=== PATIENT | female | born 1950 | race Caucasian/White ===

== ENCOUNTER 2018-03-12 10:25 | Observation (INO) ==
[2018-03-12] MEDS ORDERED: Aspirin 81 MG TAB.CHEW PO ONE (10:29)
--- NOTE | 2018-03-12 10:33 | Emergency Department Note ---
Disposition Clinical Impression: Chest pain Qualifiers: Chest pain type: unspecified Qualified Code(s): R07.9 - Chest pain, unspecified Disposition: Admitted As Inpatient Condition: Fair Referrals: Susu Calderón MD [Primary Care Provider] - Forms: ED Satisfaction Letter Time of Disposition: 12:19 Chest Pain HPI - General Chief Complaint: ED Chest Pain Stated Complaint: Chest Pain Time Seen by Provider: 03/12/18 10:29 Source: patient Mode of arrival: ambulatory Limitations: no limitations Vital Signs Reviewed: Yes Nursing Notes Reviewed: Yes - History of Present Illness HPI Narrative: 67-year-old female who has no cardiac history comes in complaining of intermittent chest pain since yesterday. Patient had a cardiac ablation 9 years ago and said no other issues since. She has had no recent cardiac workup. Cardiac risk factors include high cholesterol and family history. 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 Onset: during rest Pain Location: substernal, left chest Quality: tightness, sharp Pain Radiation: none Improves with: nothing Associated symptoms: Denies: cough Treatments prior to arrival chest pain: none - Related Data Home Medications Medication Instructions Recorded Confirmed Aspirin 81 mg PO DAILY 03/12/18 03/12/18 Calcium Carbonate [Calcium] 500 mg PO DAILY 03/12/18 03/12/18 Glucosamn/Condroitn/C/Mn/[place] 1 tab PO DAILY 03/12/18 03/12/18 [[facility]vs Glucosamine Chondroitin Tb] Lactobacillus Acidophilus 1 mg PO DAILY 03/12/18 03/12/18 [Acidophilus Probiotic] Mv-Mn/FA/Vit K/Lycop/Lut/Coq10 1 tab PO DAILY 03/12/18 03/12/18 [Daily Multivitamin Capsule] [place]-3/Dha/Epa/Fish Oil [Fish Oil 1 tab PO DAILY 03/12/18 03/12/18 1,000 mg Softgel] Simvastatin [Zocor] 20 mg PO DAILY 03/12/18 03/12/18 Ubiquinol [Active-Q] 200 mg PO DAILY 03/12/18 03/12/18 Allergies Allergy/AdvReac Type Severity Reaction Status Date / Time nitrofurantoin Allergy Swelling Verified 03/12/18 10:51 [From Macrobid] of Lip/Tongue/Throat All systems ED: reviewed and negative except as stated. Constitutional: Denies: fever, chills, weakness, weight change Eyes: Denies: eye pain, eye discharge, vision change ENT ED: Denies: ear pain, throat pain, dental pain, hearing loss, epistaxis, congestion, dysphagia Cardiovascular: Reports: chest pain. Denies: palpitations, dyspnea on exertion , edema, syncope Respiratory: Denies: cough, dyspnea, wheezes, hemoptysis, stridor Gastrointestinal: Denies: abdominal pain, nausea, vomiting, diarrhea, constipation, hematemesis, melena, hematochezia Genitourinary: Denies: dysuria, frequency, hematuria, discharge Musculoskeletal: Denies: back pain, neck pain, arthralgia, myalgia Integumentary: Denies: rash, abrasion, lesions Neurological: Denies: headache, weakness, numbness, paresthesias, confusion, abnormal gait, vertigo Psychiatric: Denies: anxiety, depression, suicidal thoughts, homicidal thoughts , auditory hallucinations, visual hallucinations Endocrine: Denies: fatigue Hematological/Lymphatic: Denies: easy bleeding, easy bruising Allergic/Immunologic: Denies: facial swelling, urticaria Chest Pain PMH - Past Medical History Medical history: Reports: hyperlipidemia Physical Exam - General Limitations: no limitations General appearance: alert, in no apparent distress - Head Head exam: atraumatic, normocephalic, normal inspection - Eye Eye exam: Present: normal appearance, PERRL, EOMI - ENT ENT exam: normal exam, normal oropharynx, mucous membranes moist - Neck Neck exam: Present: normal inspection, full ROM, trachea midline - Chest Chest inspection: Present: normal inspection, symmetric chest wall rise - Respiratory Respiratory exam: Present: normal lung sounds bilaterally - Cardiovascular Cardiovascular exam: Present: regular rate, normal rhythm, normal heart sounds - Abdominal Exam Abdominal exam: Present: soft, Non-Tender. Absent: tenderness, distention, guarding, rebound, rigidity - Extremities Exam Extremities exam: Present: normal inspection, full ROM. Absent: tenderness, pedal edema - Expanded Lower Extremity Exam Neurovascular/Tendon exam: Absent: motor deficit, sensory deficit, tendon deficit Gait: observed and normal - Back Exam Back exam: Present: normal inspection, full ROM. Absent: tenderness - Neurological Exam Neurological exam: Present: alert, oriented X3 - Psychiatric Psychiatric exam: Present: normal affect, normal mood - Skin Skin exam: Present: warm, dry, intact, normal color Course - Reevaluation(s) Time: 12:18 - Consultations Consultation #1: Discussed with Dr. Pascal, it. Time: 12:19 Vital Signs Temperature 97.4 F L 03/12/18 10:32 Pulse Rate 85 03/12/18 10:32 Respiratory Rate 16 03/12/18 10:32 Blood Pressure 139/70 03/12/18 10:32 O2 Sat by Pulse Oximetry 96 03/12/18 10:32 Temperature 97.4 F L 03/12/18 10:32 Pulse Rate 62 03/12/18 11:02 Respiratory Rate 16 03/12/18 11:02 Blood Pressure 128/69 03/12/18 11:02 O2 Sat by Pulse Oximetry 96 03/12/18 11:02 Oxygen Delivery Oxygen Delivery Room Air Chest Pain - Lab Data Result diagrams: 03/12/18 10:41 03/12/18 10:41 Lab Results 03/12/18 03/12/18 03/12/18 Range/Units 10:41 10:41 10:41 WBC 6.2 (4.3-11.1) K/mcL RBC 4.72 (3.82-4.97) M/mcL Hgb 13.4 (11.5-15.4) g/dL Hct 40.4 (35.3-44.9) % MCV 85.6 (83.0-100.0) fL MCH 28.4 (28.0-33.3) pg MCHC 33.2 (31.6-35.5) g/dL RDW 12.8 (11.5-14.5) % Plt Count 271 (140-400) K/mcL MPV 10.4 (9.4-12.4) fL Immature Gran % 0.2 (0-4) % Seg Neutrophils % 57.6 % Lymphocytes % 30.0 % Monocytes % 6.8 % Eosinophils % 4.4 % Basophils % 1.0 % Neutrophils # 3.6 (1.6-8.9) K/mcL Lymphocytes # 1.9 (0.6-4.6) K/mcL Monocytes # 0.4 (0.0-1.3) K/mcL Eosinophils # 0.3 (0.0-0.6) K/mcL Basophils # 0.1 (0.0-0.2) K/mcL PT 10.6 (9.4-12.1) Seconds INR 1.0 APTT 30.8 (26.0-36.0) Seconds Sodium (136-145) mEq/L Potassium (3.5-5.1) mEq/L Chloride (98-107) mEq/L Carbon Dioxide (23-29) mEq/L BUN (8-23) mg/dL Creatinine (0.60-1.20) mg/dL Est GFR ( Amer) (> 60) Est GFR (Non-Af Amer) (> 60) BUN/Creatinine Ratio (6-26) Glucose (70-105) mg/dL Calculated Osmolality (280-300) Calcium (8.6-10.3) mg/dL Troponin I (< 0.04) ng/mL B-Natriuretic Peptide 31 (Less than 100) pg/mL 03/12/18 Range/Units 10:41 WBC (4.3-11.1) K/mcL RBC (3.82-4.97) M/mcL Hgb (11.5-15.4) g/dL Hct (35.3-44.9) % MCV (83.0-100.0) fL MCH (28.0-33.3) pg MCHC (31.6-35.5) g/dL RDW (11.5-14.5) % Plt Count (140-400) K/mcL MPV (9.4-12.4) fL Immature Gran % (0-4) % Seg Neutrophils % % Lymphocytes % % Monocytes % % Eosinophils % % Basophils % % Neutrophils # (1.6-8.9) K/mcL Lymphocytes # (0.6-4.6) K/mcL Monocytes # (0.0-1.3) K/mcL Eosinophils # (0.0-0.6) K/mcL Basophils # (0.0-0.2) K/mcL PT (9.4-12.1) Seconds INR APTT (26.0-36.0) Seconds Sodium 140 (136-145) mEq/L Potassium 3.9 (3.5-5.1) mEq/L Chloride 107 (98-107) mEq/L Carbon Dioxide 27 (23-29) mEq/L BUN 11 (8-23) mg/dL Creatinine 0.68 (0.60-1.20) mg/dL Est GFR ( Amer) > 60 (> 60) Est GFR (Non-Af Amer) > 60 (> 60) BUN/Creatinine Ratio 16 (6-26) Glucose 102 (70-105) mg/dL Calculated Osmolality 290 (280-300) Calcium 9.2 (8.6-10.3) mg/dL Troponin I < 0.03 (< 0.04) ng/mL B-Natriuretic Peptide (Less than 100) pg/mL - EKG Data EKG attestation: Yes I reviewed and interpreted this EKG. EKG shows normal: sinus rhythm Rate: normal Rhythm: NSR [place]/QRS: normal Interpretation: no acute changes Heart Score - Score History: Moderately Suspicious EKG: Non Specific repolarisation Disturbance Age: Greater than 65 Risk Factors: 1-2 risk factors Troponin: Less than normal limit HEART Score Total: 5
[2018-03-12 10:54] LABS: Basophils # 0.1 K/mcL (0.0-0.2); Eosinophils # 0.3 K/mcL (0.0-0.6); Eosinophils % 4.4 %; Hematocrit 40.4 % (35.3-44.9); Hemoglobin 13.4 g/dL (11.5-15.4); Immature Granulocytes % 0.2 % (0-4); Lymphocytes # 1.9 K/mcL (0.6-4.6); Mean Corpuscular HGB Conc 33.2 g/dL (31.6-35.5); Mean Corpuscular Hemoglobin 28.4 pg (28.0-33.3); Mean Corpuscular Volume 85.6 fL (83.0-100.0); Mean Platelet Volume 10.4 fL (9.4-12.4); Monocytes # 0.4 K/mcL (0.0-1.3); Monocytes % 6.8 %; Neutrophils # 3.6 K/mcL (1.6-8.9); Platelet Count 271 K/mcL (140-400); Red Blood Count 4.72 M/mcL (3.82-4.97); Red Cell Distribution Width 12.8 % (11.5-14.5); Segmented Neutrophils % 57.6 %
[2018-03-12 10:59] LABS: Prothrombin Time 10.6 Seconds (9.4-12.1)
[2018-03-12 11:02] LABS: Activated Partial Thrombo Time 30.8 Seconds (26.0-36.0)
[2018-03-12 11:16] LABS: Troponin I < 0.03 ng/mL (< 0.04)
[2018-03-12 11:18] LABS: BUN/Creatinine Ratio 16 (6-26); Blood Urea Nitrogen 11 mg/dL (8-23); Calcium 9.2 mg/dL (8.6-10.3); Carbon Dioxide 27 mEq/L (23-29); Chloride 107 mEq/L (98-107); Glucose 102 mg/dL (70-105); Osmolality,Calculated 290 (280-300); Potassium 3.9 mEq/L (3.5-5.1); Sodium 140 mEq/L (136-145); eGFR For African Americans > 60 (> 60); eGFR For Non-African Americans > 60 (> 60)
[2018-03-12] MEDS ORDERED: Naloxone 0.4 MG/ML INJ IVP PRN (14:45)
[2018-03-12] MEDS ORDERED: Acetaminophen 325 MG TABLET PO PRN (14:45)
[2018-03-12] MEDS ORDERED: *HR* HYDROcodone/Acet 5/325 mg TABLET PO PRN (14:45)
[2018-03-12] MEDS ORDERED: Famotidine 20 MG/2 ML VIAL IVP STA (14:49)
[2018-03-12] MEDS ORDERED: Pantoprazole 40 MG VIAL IVP STA (14:49)
--- NOTE | 2018-03-12 14:59 | Internal Med History&Physical ---
Date of Encounter: 03/12/18 Time of Encounter: 14:53 Internal Medicine - H&P: HPI Chief complaint: Chest Pain Admitted From: Emergency Dept Plans for Post Hospital Care: Home History of present illness: Ms. Park is a 67 year old female with PMH of HLD who presented to ED today with 1-day history of chest pain. She states that she started having intermittent chest pain yesterday. Pain is located in middle chest substernally and does not radiate anywhere. She denies SOB, fever, chills, nausea, vomiting, heartburn, changes in bladder, or changes in bowel. She has family history of CAD and AZ in mother and father at older ages. She has personal history of cardiac ablation 9 years ago for "some arrhythmia." She does not follow up with cardiology. She has never had pain like this before. She sometimes gets constipated, but does not feel like that now. She denies history of heartburn or acid reflux. In the ED, EKG was unremarkable and initial troponin WNL. CXR showed hiatal hernia (new diagnosis). She was given aspirin in the ED. She has no other complaints. I was asked to admit patient for ACS ruleout. Past Med Surg Social Fam HX - Past Medical History Attestation: Yes The following information was validated with the patient. Source: patient Medical history: hyperlipidemia Psychiatric history: no psych history - Past Surgical History Surgical History: no surgical history - Social History Smoking Status: Never smoker Smokeless Tobacco Status: No Alcohol use: rarely Drug use: none - Family History Mother Hx Family Cardiac Disorders: Yes Internal Medicine - H&P: Meds Aspirin 81 mg PO DAILY 03/12/18 [History] Calcium Carbonate [Calcium] 500 mg PO DAILY 03/12/18 [History] Glucosamn/Condroitn/C/Mn/[place] [[facility] Glucosamine Chondroitin Tb] 1 tab PO DAILY 03/12/18 [History] Lactobacillus Acidophilus [Acidophilus Probiotic] 1 mg PO DAILY 03/12/18 [ History] Mv-Mn/FA/Vit K/Lycop/Lut/Coq10 [Daily Multivitamin Capsule] 1 tab PO DAILY 03/12 [History] [place]-3/Dha/Epa/Fish Oil [Fish Oil 1,000 mg Softgel] 1 tab PO DAILY 03/12/18 [ History] Simvastatin [Zocor] 20 mg PO DAILY 03/12/18 [History] Ubiquinol [Active-Q] 200 mg PO DAILY 03/12/18 [History] 3 Allergy/AdvReac Type Severity Reaction Status Date / Time nitrofurantoin Allergy Swelling Verified 03/12/18 10:51 [From Macrobid] of Lip/Tongue/Throat - Constitutional Constitutional: no anorexia, no chills, no fatigue, no fever(s), no lethargy, no malaise, no weakness, no weight gain, no weight loss - EENT Eyes: no blurry vision, no diplopia, no discharge, no loss of vision, no pain, no other visual disturbances Ears: no decreased hearing, no ear pain Nose, mouth and throat: no dry mouth, no dysphagia, no hoarseness, no mouth lesions, no mouth pain, no nasal congestion, no nasal discharge, no neck pain, no sinus pain, no sore throat - Breasts Breasts: no mass, no pain, no skin changes, no swelling - Cardiovascular Cardiovascular ROS IM: chest pain, no diaphoresis, no dyspnea, no dyspnea on exertion, no edema, no irregular heart rhythm, no lightheadedness, no palpitations, no syncope - Respiratory Respiratory: no cough, no dyspnea, no hemoptysis, no dyspnea on exertion, no wheezing, no chest congestion - Gastrointestinal Gastrointestinal: no abdominal pain, no change in bowel habits, no constipation , no diarrhea, no dyspepsia, no dysphagia, no early satiety, no heartburn, no hematemesis, no hematochezia, no melena, no nausea, no vomiting - Genitourinary Genitourinary: no difficulty urinating, no dysuria, no hematuria, no urinary frequency - Musculoskeletal Musculoskeletal ROS IM: no arthralgias, no joint swelling, no muscle cramps, no muscle weakness, no myalgias - Integumentary Integumentary IM: no erythema, no rash, no skin ulcer, no jaundice - Neurological Neurological ROS: no abnormal gait, no abnormal speech, no behavioral changes, no confusion, no dizziness, no focal weakness, no headache(s), no vertigo, no weakness - Psychiatric Psychiatric: no anxiety, no behavioral changes, no confusion, no depression - Endocrine Endocrine IM: no cold intolerance, no fatigue, no heat intolerance, no polydipsia, no polyphagia, no polyuria - Constitutional Vitals: Temp Pulse Resp BP Pulse Ox 97.5 F L 65 17 158/70 98 03/12/18 13:10 03/12/18 13:10 03/12/18 13:10 03/12/18 13:10 03/12/18 13:10 General appearance: Present: cooperative, A&O X 3, pleasant, no acute distress, answers questions appropriately - Head Head exam: Present: atraumatic, normocephalic - Eye Eye exam: Present: EOMI, PERRL. Absent: conjunctival injection, nystagmus, scleral icterus - ENT ENT exam: Present: mucous membranes moist, normal external ear exam, normal oropharynx - Neck Neck exam general surgery: Present: supple, trachea midline. Absent: lymphadenopathy, tenderness, thyromegaly - Respiratory Respiratory exam: Present: CTAB. Absent: accessory muscle use, rales, rhonchi, wheezes Additional comments: Normal WOB - Cardiovascular Cardiovascular exam: Present: RRR, +S1, +S2. Absent: diastolic murmur, gallop, rubs, systolic murmur Additional comments: No BLE edema - GI/Abdominal GI/Abdominal exam: Present: normal bowel sounds, soft. Absent: distended, hepatomegaly, mass, splenomegaly, tenderness - Neurological Exam Neurological exam: Present: alert, CN II-XII intact, oriented X3, no focal deficits, strengths equal and symetr throughout. Absent: facial droop, speech deficit - Psychiatric Psychiatric exam: Present: normal affect, normal mood. Absent: anxious, depressed - Skin Skin exam: Present: dry, intact, warm. Absent: cyanosis, rash Internal Med - H&P Results - Labs CBC & Chem 7: 03/12/18 10:41 03/12/18 10:41 - VTE Reasons for not Prescribing Prophylaxis: Treatment not Indicated - Low risk for VTE Documentation of Mechanical Device: Intermittent pneumatic compression device - Assessment and plan (1) Chest pain Current Visit: Yes Status: Acute Assessment and plan: Middle chest pain without radiation. Given age, history of HLD, past medical history of arrhythmia, and family history of CAD/AZ, will admit for observation for ACS ruleout. She has new diagnosis of hiatal hernia by CXR today. Low to moderate suspicion for ACS. Start telemetry. Start supplemental O2 PRN. Start SL nitro PRN. Start tylenol and norco PRN pain. Continue aspirin. Trend troponin x 3. Obtain ECHO. Repeat EKG in AM. Continue home medications for HLD. Will treat hiatal hernia and possible resultant acid reflux as per below. Repeat labwork in AM. Qualifiers: Chest pain type: other chest pain Qualified Code(s): R07.89 - Other chest pain; R07.8 - Other chest pain (2) Hiatal hernia Current Visit: Yes Status: Acute Assessment and plan: Start PPI and H2 mariam for now and see if it helps with chest pain symptoms. Can consider discharge on H2 mariam if improvement noted. (3) HLD (hyperlipidemia) Current Visit: Yes Status: Chronic Assessment and plan: Continue home simvastatin. Qualifiers: Hyperlipidemia type: mixed hyperlipidemia Qualified Code(s): E78.2 - Mixed hyperlipidemia (4) History of cardiac arrhythmia Current Visit: Yes Status: Chronic Assessment and plan: S/P ablation. No palpitations. EKG NSR. Continue to monitor with telemetry. (5) Chronic constipation Current Visit: Yes Status: Chronic Assessment and plan: Last BM 2 days ago. Does not feel constipated at this time. Will order miralax QD PRN if she desires. (6) DVT prophylaxis Current Visit: Yes Status: Acute Assessment and plan: Low risk and ambulatory. Start SCDs. - Time Spent With Patient Total time spent is greater than 50% in coordination of care (as documented) at patient's floor/unit and/or counseling patient: 25 - 35 minutes
[2018-03-12] MEDS ORDERED: Nitroglycerin 0.4 MG TAB.SUBL SL PRN (15:02)
[2018-03-12] MEDS: UBIQUINOL 200 MG PO SCH (15:25)
[2018-03-12] MEDS: (Glucosamn/Condroitn/C/Mn/Boron [Cvs Glucosamine Chon PO SCH (15:25)
[2018-03-12] MEDS: (Omega-3/Dha/Epa/Fish Oil [Fish Oil 1,000 Mg Softgel] PO SCH (15:25)
[2018-03-12] MEDS: Lactobacillus 1 EACH CAP.SPRINK PO SCH (15:51)
[2018-03-12] MEDS: Multivit/Ca/Min/Fe/FA 1 TAB TABLET PO SCH (15:51)
--- NOTE | 2018-03-12 17:18 | Electrocardiograph Report ---
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
[2018-03-12] MEDS: Famotidine 20 MG TABLET PO SCH (20:16)
[2018-03-12] MEDS ORDERED: Melatonin 3 MG TABLET PO ONE (21:43)
[2018-03-13 03:27] LABS: Basophils % 0.7 %; Eosinophils # 0.3 K/mcL (0.0-0.6); Eosinophils % 5.7 %; Hematocrit 38.6 % (35.3-44.9); Hemoglobin 12.9 g/dL (11.5-15.4); Immature Granulocytes % 0.4 % (0-4); Lymphocytes % 36.3 %; Mean Corpuscular HGB Conc 33.4 g/dL (31.6-35.5); Mean Corpuscular Hemoglobin 28.3 pg (28.0-33.3); Mean Corpuscular Volume 84.6 fL (83.0-100.0); Mean Platelet Volume 10.5 fL (9.4-12.4); Monocytes # 0.4 K/mcL (0.0-1.3); Monocytes % 7.8 %; Neutrophils # 2.7 K/mcL (1.6-8.9); Platelet Count 238 K/mcL (140-400); Red Blood Count 4.56 M/mcL (3.82-4.97); Red Cell Distribution Width 12.8 % (11.5-14.5); Segmented Neutrophils % 49.1 %
[2018-03-13 03:44] LABS: BUN/Creatinine Ratio 16 (6-26); Blood Urea Nitrogen 11 mg/dL (8-23); Calcium 9.2 mg/dL (8.6-10.3); Carbon Dioxide 24 mEq/L (23-29); Chloride 106 mEq/L (98-107); Chol/HDL Ratio 3.1 (0-4.9); Cholesterol 164 mg/dL (< 200); Glucose 110 mg/dL (70-105); HDL Cholesterol 53 mg/dL (40-59); LDL Cholesterol,Calculated 89 mg/dL (0-99); Osmolality,Calculated 286 (280-300); Potassium 3.7 mEq/L (3.5-5.1); Sodium 138 mEq/L (136-145); Triglycerides 111 mg/dL (< 150); eGFR For African Americans > 60 (> 60); eGFR For Non-African Americans > 60 (> 60)
[2018-03-13] MEDS ORDERED: *HR* Enoxaparin 40 MG/0.4 ML SYRINGE SQ SCH (06:00)
[2018-03-13] MEDS ORDERED: Regadenoson 0.4 MG/5 ML SYRINGE IVP ONE (08:33)
[2018-03-13] MEDS ORDERED: Aspirin 81 MG TAB.CHEW PO SCH ×2 (09:00→13:07)
[2018-03-13] MEDS: Famotidine 20 MG TABLET PO SCH (11:03)
[2018-03-13] MEDS: (Omega-3/Dha/Epa/Fish Oil [Fish Oil 1,000 Mg Softgel] PO SCH (11:03)
[2018-03-13] MEDS: Lactobacillus 1 EACH CAP.SPRINK PO SCH (11:03)
[2018-03-13] MEDS: Multivit/Ca/Min/Fe/FA 1 TAB TABLET PO SCH (11:03)
[2018-03-13] MEDS: UBIQUINOL 200 MG PO SCH (11:03)
[2018-03-13] MEDS: (Glucosamn/Condroitn/C/Mn/Boron [Cvs Glucosamine Chon PO SCH (11:03)
[2018-03-13 12:26] VITALS: BP 117/74
[2018-03-13] MEDS ORDERED: Metoprolol XL (24 HR) Succ 25 MG TAB.ER.24H PO SCH (13:15)
--- NOTE | 2018-03-13 13:16 | Discharge Summary ---
- NOTES TO OUTPATIENT PROVIDER Notes to Outpatient Provider: PRIMARY care within 1 week. Follow-up with cardiology next week for discussion regarding left heart cath with abnormal stress test. Patient discharged on Toprol XL 25 mg daily and low-dose aspirin, continue statin Orders not resulted at time of discharge: Pending orders 03/13/18 06:00 ECG 12 lead ECG [ECG] AM 0600 03/13/18 08:23 NM jevon perf SPECT multi [NM] Routine Date of Encounter: 03/13/18 Time of Encounter: 13:14 - Discharge Diagnosis (1) Chest pain Priority: Primary Status: Acute Qualifiers: Chest pain type: other chest pain Qualified Code(s): R07.89 - Other chest pain; R07.8 - Other chest pain (2) HLD (hyperlipidemia) Priority: Primary Status: Chronic Qualifiers: Hyperlipidemia type: mixed hyperlipidemia Qualified Code(s): E78.2 - Mixed hyperlipidemia (3) History of cardiac arrhythmia Priority: Primary Status: Chronic (4) Hiatal hernia Priority: Primary Status: Chronic (5) Chronic constipation Priority: Primary Status: Chronic Hospital course: Ms. Park is a 67 year old female past medical history of hyperlipidemia who presented to the ER with a one-day history of midsternal chest pain that she stated was intermittent in nature located in the middle of her chest and did not radiate. She had a stress test that was read as an abnormal stress test. Cardiology contacted me came up and saw the patient and recommended left heart catheterization. The patient would like to go home and think about it. Cardiology agreed that that was possible and will see her next week in the office. She will go home on daily baby aspirin, continue her home statin and start Toprol XL any 5 mg daily. She has a problem with constipation and a hiatal hernia so was provided with a prescription for MiraLAX and a PPI. She also had an echocardiogram completed with LVEF 60-65% normal LV chamber size wall thickness and function and all wall segments showed normal motion at rest echo. Discussed this plan with the patient and she would like to go home and follow-up as noted above. 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 Polyethylene Glycol 3350 [MiraLAX] 17 gm PO DAILY PRN #30 powd.pack PRN Reason: Constipation Home Medications: Aspirin 81 mg PO DAILY 03/12/18 [History] Calcium Carbonate [Calcium] 500 mg PO DAILY 03/12/18 [History] Glucosamn/Condroitn/C/Mn/[place] [[facility] Glucosamine Chondroitin Tb] 1 tab PO DAILY 03/12/18 [History] Lactobacillus Acidophilus [Acidophilus Probiotic] 1 mg PO DAILY 03/12/18 [ History] Mv-Mn/FA/Vit K/Lycop/Lut/Coq10 [Daily Multivitamin Capsule] 1 tab PO DAILY 03/12 [History] [place]-3/Dha/Epa/Fish Oil [Fish Oil 1,000 mg Softgel] 1 tab PO DAILY 03/12/18 [ History] Simvastatin [Zocor] 20 mg PO DAILY 03/12/18 [History] Ubiquinol [Active-Q] 200 mg PO DAILY 03/12/18 [History] Metoprolol XL (24 HR) Succ [Toprol Xl] 25 mg PO DAILY #30 tab.er.24h 03/13/18 [ Rx] Nitroglycerin 0.4 mg SL Q5MIN PRN tab.subl 03/13/18 [Rx] Omeprazole [PriLOSEC] 20 mg PO DAILY@0630 #30 capsule. 03/13/18 [Rx] Polyethylene Glycol 3350 [MiraLAX] 17 gm PO DAILY PRN #30 powd.pack 03/13/18 [Rx ] Allergies/Adverse Reactions: 3 Allergy/AdvReac Type Severity Reaction Status Date / Time nitrofurantoin Allergy Swelling Verified 03/12/18 10:51 [From Macrobid] of Lip/Tongue/Throat Date of admission: 03/12/18 12:25 Primary care physician: Susu Calderón Consults: 03/13/18 12:38 Consult to Cardiology [CONS] Routine Comment: Consulting Provider: Cardiology Isidra Reason for Consult: abnormal stress Time Notified: 12:38 Call Completed: Yes Discharging clinician: Pamela Clayton Anticipated date of discharge: 03/13/18 - Constitutional Vitals: Temp Pulse Resp BP Pulse Ox 97.3 F L 92 14 117/74 95 03/13/18 12:26 03/13/18 12:26 03/13/18 12:26 03/13/18 12:26 03/13/18 12:26 General appearance: Present: cooperative, A&O X 3, pleasant, no acute distress, answers questions appropriately - Head Head exam: Present: atraumatic, normocephalic - Eye Eye exam: Present: PERRL, conjuntiva pink, sclera anicteric Pupils: Present: PERRL - Neck Neck exam general surgery: Present: supple, trachea midline. Absent: lymphadenopathy - Respiratory Respiratory exam: Present: CTAB. Absent: accessory muscle use, rales, rhonchi, wheezes - Cardiovascular Cardiovascular exam: Present: RRR, +S1, +S2. Absent: diastolic murmur, gallop, rubs, systolic murmur - GI/Abdominal GI/Abdominal exam: Present: normal bowel sounds, soft, no peritoneal signs. Absent: distended, tenderness - Extremities Exam Extremities exam: Present: warm, radial pulses palpable and symmetrical. Absent : calf tenderness, cyanotic, pedal edema - Neurological Exam Neurological exam: Present: alert, CN II-XII intact, oriented X3, no focal deficits. Absent: pronater drift, facial droop, speech deficit - Skin Skin exam: Present: dry, intact, normal color, warm - Patient Status Disposition: Home, Self-Care Condition: Fair Functional capacity at discharge: independent ambulation Overall status at discharge: patient is back to baseline - Discharge Instructions Follow Up With: Esvin Calderón MD [Non-Partnered Physician] - (hospital follow up appointment web requested. office will call with date and time of appointment. ) Additional Instructions: Follow-up with cardiology next week as directed for discussion of abnormal stress test and possibility for for left heart cath - Diet and Activity Activity: increase activity as tolerated Diet: low fat, low cholesterol, low salt diet - VTE Reasons for not Prescribing Prophylaxis: Treatment not Indicated - Low risk for VTE Documentation of Mechanical Device: Intermittent pneumatic compression device
--- NOTE | 2018-03-13 13:22 | Cardiology Consult Note ---
Date of Encounter: 03/13/18 Time of Encounter: 13:19 Assessment and Plan Discussion w patient/family: Impressions: Chest pain. Mildly abnormal stress test. Recommendations: The patient and I had a long discussion regarding her presentation and results of testing. I explained the abnormal findings of her stress test could represent ischemia. We discussed her options, including medical therapy +/- cardiac catheterization. We discussed the risks, benefits, and alternatives to the procedure. I recommended that she have it. She declines at this time and states she would rather follow-up in the office. She understands the risks of her decision, including worsening cardiac condition and . Recommend continue aspirin and simvastatin. She has nitroglycerin at home. Start Toprol- XL 25 mg daily. Patient instructed to call 911 and go to the ER if her symptoms return or worsen. Otherwise, we will see her in the office. All questions were answered. The assessment and plan as outlined above was discussed with the patient and/or family members who expressed understanding and agreement. All questions were answered. Thank you for involving us in the care of your patient. Please call with any questions. History of Present Illness Consult date: 03/13/18 Requesting physician: Pamela Clayton Consult reason: chest pain Chief complaint: chest pain History of present illness: Ms. Park is a 67 year old female who reports chest discomfort yesterday. Symptoms lasted about 20 minutes. Substernal, no radiation. No n/v. Prior EP study with ablation about 8 years ago. Tn negative. Stress test - small, inferolateral defect possibly due to ischemia. Echocardiogram - normal LV function. Past Med Surg Social Fam HX - Past Medical History Medical history: hyperlipidemia Psychiatric history: no psych history - Past Surgical History Surgical History: no surgical history - Social History Smoking Status: Never smoker Smokeless Tobacco Status: No Alcohol use: rarely Drug use: none - Family History Mother Hx Family Cardiac Disorders: Yes Medications and Allergies Aspirin 81 mg PO DAILY 03/12/18 [History] Calcium Carbonate [Calcium] 500 mg PO DAILY 03/12/18 [History] Glucosamn/[place]n/C/Mn/[place] [[facility] Glucosamine Chondroitin Tb] 1 tab PO DAILY 03/12/18 [History] Lactobacillus Acidophilus [Acidophilus Probiotic] 1 mg PO DAILY 03/12/18 [ History] Mv-Mn/FA/Vit K/Lycop/Lut/Coq10 [Daily Multivitamin Capsule] 1 tab PO DAILY 03/12 [History] Dutton-3/Dha/Epa/Fish Oil [Fish Oil 1,000 mg Softgel] 1 tab PO DAILY 03/12/18 [ History] Simvastatin [Zocor] 20 mg PO DAILY 03/12/18 [History] Ubiquinol [Active-Q] 200 mg PO DAILY 03/12/18 [History] Metoprolol XL (24 HR) Succ [Toprol Xl] 25 mg PO DAILY #30 tab.er.24h 03/13/18 [ Rx] Nitroglycerin 0.4 mg SL Q5MIN PRN tab.subl 03/13/18 [Rx] Omeprazole [PriLOSEC] 20 mg PO DAILY@0630 #30 capsule.dr 03/13/18 [Rx] Polyethylene Glycol 3350 [MiraLAX] 17 gm PO DAILY PRN #30 powd.pack 03/13/18 [Rx ] 3 Allergy/AdvReac Type Severity Reaction Status Date / Time nitrofurantoin Allergy Swelling Verified 03/12/18 10:51 [From Macrobid] of Lip/Tongue/Throat All Systems Review: The remainder of the systems were reviewed and are negative - Cardiovascular Cardiovascular: as per HPI, chest pain at rest, chest pain with exertion Physical Examination Vital Signs, Last 4 Hours Temp Pulse Resp BP Pulse Ox 03/13/18 12:26 97.3 F L 92 14 117/74 95 General: Conversant, No Apparent Distress HEENT: Atraumatic, Normocephaly, Mucus Membranes Moist Neck: No JVD, Normal carotid pulses Cardiac: Reg Rate and Rhythm, Normal S1 and S2, No Murmur Lungs: Normal Breath Sounds, No Wheeze, Rales, Rhonchi Neuro: Alert and responsive, No focal deficits noted Abdomen: Soft, Non-Tender Skin: No rashes noted on visualized skin Musculoskeletal: No Chest Wall Tenderness Extremities: No Clubbing, No Cyanosis, No Edema Results 03/13/18 03:03 03/13/18 03:03 Lab Results 03/12/18 03/12/18 03/13/18 15:50 21:25 03:03 WBC Hgb Hct Plt Count Sodium Potassium Chloride Carbon Dioxide BUN Creatinine Glucose Calcium Troponin I < 0.03 < 0.03 < 0.03 03/13/18 03/13/18 03:03 03:03 WBC 5.5 Hgb 12.9 Hct 38.6 Plt Count 238 Sodium 138 Potassium 3.7 Chloride 106 Carbon Dioxide 24 BUN 11 Creatinine 0.68 Glucose 110 H Calcium 9.2 Troponin I - Imaging and Cardiology Stress Test: report reviewed Echo: report reviewed - EKG Interpretation EKG results cardiology: personally reviewed Consult Discharge Plan - Plan Instructions: Metoprolol (By mouth), Left Heart Catheterization (DC) Referrals: [facility] [Provider Group] (The office will be calling you with a hospital follow up. If they do not call you, please call them at [phone] ) Esvin Calderón MD [Non-Partnered Physician] - (hospital follow up appointment web requested. office will call with date and time of appointment. )
--- NOTE | 2018-03-16 05:37 | Electrocardiograph Report ---
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
== END 2018-03-13 14:46 | disposition home or self-care (01) ==
LOC: 3BNU 10:25 → EMEROO 10:25 → 3BNU 12:55
PROVIDERS: ADMIT Family Medicine; ATTEND Family Medicine